=== PATIENT | male | born 1990 | race Hispanic/Latino ===

== ENCOUNTER 2018-03-05 21:07 | Emergency (ER) | payer OTHER ==
[~2018-03-05] VITALS: Ht 157.5 cm; Wt 55.3 kg
[~2018-03-05 21:07] MED LIST: ADVAIR 250/501 DISK IH; HYDROCODON-ACE1 EAC7 PO; NAPROSYN500 MG PO; NAPROXEN500 MG PO; PREVACID30 MG PO; PROTONIX40 MG PO; VENTOLIN17 GM IH; ZOFRAN ODT4 MG PO
[2018-03-05] MEDS ORDERED: ZYRTEC10 M2 PO (23:07)
[2018-03-06 00:08] VITALS: BP 155/90
== END 2018-03-06 00:25 | disposition home or self-care (01) ==
LOC: EME 21:07
DX: R05 Cough (principal); J45.909 Unspecified asthma, uncomplicated; Z77.120 Contact with and (suspected) exposure to mold (toxic); G80.9 Cerebral palsy, unspecified; Z88.8 Allergy status to other drugs, medicaments and biological substances
CPT/HCPCS: 71046; 99281; 99284